=== PATIENT | female | born 1945 | race Caucasian/White ===

== ENCOUNTER 2025-09-24 12:37 | Emergency (ER) | payer MEDICARE, BC, SELFPAY ==
[2025-09-24 12:39] VITALS: BP 157/72
[2025-09-24 13:17] LABS: Hematocrit 41.3 % (37.0-47.0); Hemoglobin 14.1 g/dL (12.0-16.0); Mean Corp Hgb Conc. 34.1 g/dL (33.0-37.0); Mean Corpuscular Volume 86.8 fL (81.0-99.0); Nucleated Red Blood Cells % 0 %; Platelet Count 226 10^3/uL (130-400); Red Cell Dist. Width 14.2 % (11.5-14.5)
[2025-09-24 13:30] LABS: ALT (SGPT) 47 U/L (0-35); AST (SGOT) 44 U/L (14-36); Albumin 4.7 g/dl (3.5-5.0); Alkaline Phosphatase 129 U/L (38-126); Blood Urea Nitrogen 20 mg/dl (7-17); Calcium 9.7 mg/dl (8.4-10.2); Carbon Dioxide 20 mmol/L (22-30); Chloride 110 mmol/L (98-107); Glucose 117 mg/dl (70-99); Lipase 292 U/L (23-300); Potassium 4.2 mmol/L (3.5-5.1); Sodium 138 mmol/L (135-145); Total Protein 7.8 g/dl (6.3-8.2); eGFR 56.60
[2025-09-24] MEDS: NSS 500 IV (15:00)
--- NOTE | 2025-09-24 15:22 | ED.GENMED ---
History of Present Illness
General
Chief Complaint: Bowel Problem
Source: patient and family (Daughter)
Time Seen by Provider: 09/24/25 14:40
History of Present Illness
History of Present Illness:
79-year-old female presents emergency room complaining of diarrhea. She is been having multiple episodes of diarrhea a day which she describes as watery. This has been going on for few weeks. She has been on 2 courses of antibiotics recently. 1
in May for a urinary tract infection after which she did have some diarrhea. However she was on another course of antibiotics for a 'stye' which seem to really exacerbate things. Patient had C. difficile about 4 to 5 years ago. The symptoms she
is experiencing now reminds her of that. She is complaining of some suprapubic abdominal pain. No fever or chills. She is tolerating oral intake.
Phy Exam
Physical Exam
Physical Exam:
General: Awake, Alert, Oriented X3. No acute distress.
Vitals: unremarkable
Head: Atraumatic
Eyes: Pupils equal, EOMI
Throat: Airway intact, no exudates
Neck: Trachea midline
Lungs: Clear and equal b/l
Heart: Regular rate, no murmurs
Abd: Soft, mild lower abdominal tenderness to palpation, No pulsatile mass
Neuro: Nonfocal
Skin: Warm, dry, no rash
Extremities: pulses equal b/l, no edema
Course
Orders/Labs/Results
Orders:
Orders
09/24/25 12:57
Complete Blood Count/With Diff Urgent
Comprehensive Metabolic Panel Urgent
Lipase Urgent
09/24/25 14:45
CT Abd/Pel (IV only)-DH only Urgent
Comment:
Reason For Exam: lower abd pain, diarrhea
0.9% Sodium Chloride 500 ml [Nss] 500 ml IV BOLUS
Abnormal Lab Results
09/24/25
12:57
Abs Immat Gran (auto) 0.1 H 10^3/uL
(0-0.05)
Absolute Lymphs (auto) 3.7 H 10^3/uL
(1.2-3.4)
Absolute Monos (auto) 0.7 H 10^3/uL
(0.1-0.6)
Chloride 110 H mmol/L
(98-107)
Carbon Dioxide 20 L mmol/L
(22-30)
BUN 20 H mg/dl
(7-17)
Glucose 117 H mg/dl
(70-99)
AST 44 H U/L
(14-36)
ALT 47 H U/L
(0-35)
Alkaline Phosphatase 129 H U/L
(38-126)
09/24/25 12:57
09/24/25 12:57
Vital Signs
Initial and Last Documented VS:
Initial Vital Signs
Temp Pulse Resp BP Pulse Ox
98.5 F 74 19 157/72 95
09/24/25 12:39 09/24/25 12:39 09/24/25 12:39 09/24/25 12:39 09/24/25 12:39
Last Documented Vital Signs
Temp Pulse Resp BP Pulse Ox
98.5 F 74 19 157/72 95
09/24/25 12:39 09/24/25 12:39 09/24/25 12:39 09/24/25 12:39 09/24/25 15:25
MDM/Problems Addressed
Differential Diagnosis Includes:
Functional diarrhea, C. difficile, other infectious pathogen, electrolyte abnormality
MDM/Problems Addressed:
Patient presents with diarrhea. Unfortunately her fortunately she has had no diarrhea here in the emergency room. Patient states she really develops that after she eats a meal. Workup here reveals unremarkable labs. CT of the abdomen pelvis
shows no significant bowel pathology. She has some calcifications of the pancreas which suggest chronic pancreatitis. Patient does not recall ever having been diagnosed with pancreatitis. Given she has a normal white blood cell count in her colon
appears normal and CAT scan I think is unlikely she has significant C. difficile though we will really need a stool sample to exclude this completely. I gave the patient a slip so that she could take a sample to the lab should she be able to
produce 1. Patient has a benign abdominal exam. She is very stable for discharge and outpatient follow-up with GI and her primary care provider
*Radiology
Radiology exam reviewed: radiology read reviewed
*Pulse Oximetry
SaO2: 95
Patient hypoxic: no
*Critical Care Note
Total Time (30-74mins, 75-104mins- exclusive of procedures): Not Applicable
ED Attending Note
-
Portions of this chart may have been created with voice recognition software.� Occasional wrong word or��sound alike� substitutions may have occurred due to the inherent limitations of voice recognition software.
Discharge Plan
Departure
Patient Disposition: Home (Routine Discharge)
Date of Disposition: 09/24/25
Time of Disposition: 17:57
Patient with high blood pressure during this ER visit?: Yes
Condition: Good
Discharge Problem:
Diarrhea
Instructions: Diarrhea and Traveler's Diarrhea, Adult (DC)
Referrals:
João Marquis MD [Active, Gastroenterology]
Zunilda Elizabeth MD [Family Provider, Internal Medicine]
Interventions
Interventions:
*Risk Screen - Suicide Last Done: 09/24/25 12:44
*General Assessment Last Done: 09/24/25 12:44
*Neglect/Abuse Screening Last Done: 09/24/25 12:44
*ED- Fall Risk Assessment Last Done: 09/24/25 18:06
*ED COVID-19 Vaccine History Last Done: 09/24/25 12:44
*ED Influenza Vaccine History Last Done: 09/24/25 12:44
*Nursing Disposition Last Done: 09/24/25 18:06
HJ-Ddaxle-Klyhzybozo Assessment Last Done: 09/24/25 15:51
Discharge Date and Time
Discharge Date/Time: 09/24/25 18:09
Print Language: [place]
== END 2025-09-24 18:09 | disposition home or self-care (01) ==
LOC: EMR 12:37
PROVIDERS: Emergency Medicine; EMERGENCY PHYSICIAN Emergency Medicine; FAMILY PHYSICIAN Internal Medicine
DX: R19.7 Diarrhea, unspecified (principal); K86.89 Other specified diseases of pancreas
CPT/HCPCS: 99284; 96360; 74177; 80053; 83690; 85025; 87045; 87046; 87324; 87328; 87329; 87427; 87449; Q9967